=== PATIENT | male | born 1980 | race African-American/Black ===

== ENCOUNTER 2019-11-12 23:39 | Emergency (ER) | payer OTHER ==
[~2019-11-12] VITALS: Ht 190.5 cm; Wt 93.0 kg
[~2019-11-12 23:39] MED LIST: A-B OTIC EAR DR15 ML OT; CLEOCIN HCL150 MG PO; HYDROCODONE-AP1 EAC6 PO; NORCO 5-325 TA1 EACH PO
[2019-11-13 00:28] VITALS: BP 155/82
== END 2019-11-13 00:29 | disposition home or self-care (01) ==
LOC: ER 23:39
DX: M79.10 Myalgia, unspecified site (principal); J45.909 Unspecified asthma, uncomplicated; Z88.1 Allergy status to other antibiotic agents; Z88.0 Allergy status to penicillin; Z88.8 Allergy status to other drugs, medicaments and biological substances